=== PATIENT | female | born 2000 | race Caucasian/White ===

== ENCOUNTER 2023-12-18 12:06 | Emergency (ER) | payer OTHER ==
[~2023-12-18] VITALS: Ht 157.5 cm; Wt 61.7 kg
[2023-12-18 12:23] VITALS: BP 109/67; PULSE 106; RESP 19; TEMP 98.5; O2SAT 98
[2023-12-18] MEDS: KETOROLAC 30 MG/ML VIAL IM ONE (13:02)
[2023-12-18 13:42] LABS: APPEARANCE,URINE CLEAR (CLEAR); BILIRUBIN,URINE NEGATIVE (NEGATIVE); BLOOD, URINE 2+ (NEGATIVE); COLOR,URINE YELLOW (YELLOW); LEUKOCYTE ESTERASE ,URINE 3+ (NEGATIVE); NITRITE, URINE POSITIVE (NEGATIVE); PROTEIN,URINE 2+ (NEGATIVE); UGLUCOSE NEGATIVE (NEGATIVE); UROBILINOGEN,URINE 0.2 EU/dL (0.2 - 1)
[2023-12-18] MEDS: ACETAMINOPHEN EXTRA STRENGTH 500 MG TAB PO ONE (13:48)
[2023-12-18 14:08] LABS: BACTERIA,URINE >30 (MANY) /HPF (None Seen); SQUAMOUS EPITHELIAL CELL,UR 0-3 (FEW) /LPF (0-3 (FEW)); WBC,URINE >25 (MANY) /HPF (0-5)
[2023-12-18] MEDS ORDERED: NAPR-1704 PO (14:13)
[2023-12-18] MEDS ORDERED: CAPS1ADH5 TP (14:13)
[2023-12-18] MEDS ORDERED: CEPH-588 PO (14:13)
== END 2023-12-18 14:20 | disposition home or self-care (01) ==
LOC: MED 12:06
DX: N39.0 Urinary tract infection, site not specified (principal); S39.012A Strain of muscle, fascia and tendon of lower back, initial encounter; G44.209 Tension-type headache, unspecified, not intractable; Z79.1 Long term (current) use of non-steroidal anti-inflammatories (NSAID); Z79.899 Other long term (current) drug therapy; Z98.890 Other specified postprocedural states; X58.XXXA Exposure to other specified factors, initial encounter; Y93.89 Activity, other specified; Y92.89 Other specified places as the place of occurrence of the external cause; Y99.8 Other external cause status
CPT/HCPCS: 81001; 81025; 87086; 96372; 99283; J1885; 87186